=== PATIENT | female | born 1940 | race Caucasian/White ===

== ENCOUNTER 2017-03-15 13:56 | Inpatient (IN) | payer MEDICARE, OTHER ==
[~2017-03-15] VITALS: Ht 149.9 cm; Wt 54.9 kg
--- NOTE | 2017-03-15 14:00 | NUR ---
DIARRHEA X 5 DAYS ASSOCIATED WITH WEAKNESS AND EPIGASTRIC DISCOMFORT, NAD NOTED, VSS, RESP EVEN AND UNLABORED. PT PUT ON MONITOR, WAITING FOR MD CHAUDHRY.
[2017-03-15] MEDS ORDERED: FAMOTIDINE/PF INJ 20 MG/2 ML VIAL IV ONE ×2 (14:50→15:00)
[2017-03-15 14:53] LABS: BASOPHILS % (AUTO) 0.7 % (0.0-2.0); EOSINOPHILS # (AUTO) 0.1 /CMM (0.0-0.7); EOSINOPHILS % (AUTO) 1.5 % (0.0-6.0); HEMATOCRIT 39 % (33-45); HEMOGLOBIN 13.4 g/dL (11.5-14.8); LYMPHOCYTES # (AUTO) 1.8 /CMM (0.8-4.8); LYMPHOCYTES % (AUTO) 40.6 % (20.0-44.0); MEAN CORPUSCULAR HEMOGLOBIN 32 PG (26.0-33.0); MEAN CORPUSCULAR HGB CONC 35 g/dl (31.0-36.0); MEAN CORPUSCULAR VOLUME 92 fL (82-100); MONOCYTES # (AUTO) 0.6 /CMM (0.1-1.30); MONOCYTES % (AUTO) 12.5 % (2.0-12.0); NEUTROPHILS % (AUTO) 44.7 % (43.0-81.0); PLATELET COUNT (AUTO) 142 /CMM (150-450); RDW COEFFICIENT OF VARIATION 12.7 (11.5-15.0); RED BLOOD CELL COUNT(AUTO) 4.21 MIL/uL (4.0-5.2); WHITE BLOOD COUNT (AUTO) 4.5 K/uL (4.3-11.0)
[2017-03-15] MEDS ORDERED: IV NS 0.9% 1,000 ML BAG IV ONE (15:00)
[2017-03-15 15:02] LABS: CALCIUM, SERUM 8.3 mg/dL (8.5-10.1); CARBON DIOXIDE 24 mmol/L (21-32); CHLORIDE 101 mmol/L (98-107); CREATININE 0.7 mg/dL (0.6-1.3); GLUCOSE 89 mg/dL (74-106); POTASSIUM 3.5 mmol/L (3.5-5.1); SODIUM SERUM 133 mmol/L (136-145); UREA NITROGEN, BLOOD 12 mg/dL (7-18)
[2017-03-15 15:06] LABS: INR 1.09 (0.87-1.13); PROTHROMBIN TIME 11.3 SECS (9.5-12.7)
[2017-03-15 15:08] LABS: ALANINE AMINOTRANSFERASE 32 U/L (12-78); ALBUMIN 3.1 g/dL (3.4-5.0); ALKALINE PHOSPHATASE 53 U/L (46-116); ASPARTATE AMINOTRANSFERASE 28 U/L (15-37); BILIRUBIN,DIRECT 0.1 mg/dL (0.0-0.2); BILIRUBIN,TOTAL 0.5 mg/dL (0.2-1.0); LIPASE 161 U/L (73-393); TOTAL PROTEIN, SERUM 6.5 g/dL (6.4-8.2)
[2017-03-15 15:10] LABS: TROPONIN I 0.037 ng/mL (0.00-0.056)
--- NOTE | 2017-03-15 15:18 | NUR ---
urine sent to lab
[2017-03-15 15:23] LABS: APPEARANCE,URINE Clear (CLEAR); BILIRUBIN,URINE Negative (NEGATIVE); BLOOD, URINE Trace-intact Ery/uL (NEGATIVE); COLOR,URINE Yellow (YELLOW); KETONES,URINE Negative (NEGATIVE); LEUKOCYTE ESTERASE ,URINE Trace (NEGATIVE); NITRITE, URINE Negative (NEGATIVE); PROTEIN,URINE Negative (NEGATIVE); UGLUCOSE Negative (NEGATIVE); UROBILINOGEN,URINE 0.2 EU/dL (0.2)
[2017-03-15 15:30] LABS: BACTERIA,URINE None seen /HPF (None Seen); SQUAMOUS EPITHELIAL CELL,UR Few /HPF (None Seen)
[2017-03-15] MEDS ORDERED: CEFTRIAXONE 1GM BAG (ER ONLY) 1 GM/50 ML PIGGYBACK IV ONE (16:00)
--- NOTE | 2017-03-15 16:22 | NUR ---
DR NETTLES ON THE PHONE WITH Dr. Matthews
[2017-03-15] MEDS ORDERED: CEFTRIAXONE 1 G in IV D5W 50 ML IV ONE (16:30)
[2017-03-15] MEDS ORDERED: ASPIRIN 325 MG TABLET PO ONE (16:30)
[2017-03-15] MEDS ORDERED: ASPIRIN 325 MG TABLET ONE (17:09)
[2017-03-15] MEDS ORDERED: ATOR40TA PO (17:46)
[2017-03-15] MEDS ORDERED: IRBE150T28 PO (17:46)
[2017-03-15] MEDS ORDERED: ASPI-1169 PO (17:46)
[2017-03-15] MEDS ORDERED: PRED5DRO17 EACHEYE (17:46)
[2017-03-15] MEDS ORDERED: BROM5DRO3 EACHEYE (17:46)
[2017-03-15] MEDS ORDERED: GATI2.5D EACHEYE (17:46)
[2017-03-15] MEDS ORDERED: CITA10TA9 PO (17:46)
[2017-03-15] MEDS ORDERED: LORA1TAB PO (17:46)
[2017-03-15] MEDS ORDERED: UBID30CA11 PO (17:46)
[2017-03-15] MEDS ORDERED: OMEP20TA5 PO (17:46)
[2017-03-15] MEDS ORDERED: IV NS 0.9% 1,000 ML IV PRN (17:55)
[2017-03-15] MEDS ORDERED: ACETAMINOPHEN 325 MG TABLET PO PRN (18:00)
[2017-03-15] MEDS ORDERED: HYDROCODONE/APAP 5/325MG 1 EACH TABLET PO PRN (18:00)
[2017-03-15] MEDS ORDERED: Z GUARD REMEDY 2 OZ OINT TP PRN (18:00)
[2017-03-15] MEDS ORDERED: MAGNESIUM HYDROXIDE 30 ML UDC PO PRN (18:00)
[2017-03-15] MEDS ORDERED: ONDANSETRON HCL/PF 4 MG/2 ML VIAL IVP PRN (18:00)
[2017-03-15] MEDS ORDERED: ZOLPIDEM TARTRATE 5 MG TABLET PO PRN (18:00)
[2017-03-15] MEDS ORDERED: MAG HYDROX/AL HYDROX/SIMETH 30 ML UDC PO PRN (18:00)
--- NOTE | 2017-03-15 18:22 | NUR ---
called jose for report, she will call back in 10 mins
--- NOTE | 2017-03-15 19:30 | NUR ---
AGRICULTURAL RESEARCH TECHNOLOGIST OPENING NOTES: RECEIVED PT FROM ED VIA [employer]. PT IS A/OX3 AND MALIAN SPEAKING AND UNDERSTANDING ONLY. PT CAN SPEAK AND UNDERSTAND SOME ALBANIAN. DAUGHTER IN LAW AT BEDSIDE. PT ON ROOM AIR AND TOLERATING WELL. PT HAS IV ON L HAND #18G AND IS PATENT AND INTACT. PT TO BE STARTED ON FLUIDS AT NS 75ML/HR. CALL LIGHT WITHIN PT'S REACH. BED KEPT IN LOW, LOCKED POSITION, AND SIDE RAILS X 2UP. WILL CONTINUE TO MONITOR PT.
--- NOTE | 2017-03-15 19:55 | NUR ---
EQUIPMENT ASSOCIATE NOTES: BROMSITE AND GATIFLOXACIN SENT TO PHARMACY.
[2017-03-15 20:00] VITALS: BP 155/91
[2017-03-15] MEDS: AZITHROMYCIN 500 MG in IV D5W 250 ML IV SCH (20:21)
[2017-03-15] MEDS: methylPREDNISolone SOD SUCC 125 MG/2ML VIAL IV SCH (20:39)
[2017-03-15] MEDS: GATIFLOXACIN EACHEYE SCH (20:43)
[2017-03-15] MEDS: prednisoLONE ACETATE 1% SUSP 5 ML BOTTLE EACHEYE SCH (20:45)
[2017-03-15] MEDS: ENOXAPARIN SODIUM 30 MG/0.3 ML DISP.SYRIN SQ SCH (21:00)
[2017-03-15] MEDS: IPRATROPIUM NEB FS 0.5 MG/2.5 ML AMPUL.NEB NEB SCH (21:06)
[2017-03-15] MEDS: ALBUTEROL FS 2.5 MG/0.5 ML VIAL.NEB NEB SCH (21:06)
[2017-03-15] MEDS: LORAZEPAM 1 MG TABLET PO SCH (22:51)
[2017-03-16] VITALS: BP 139/85
[2017-03-16] MEDS: methylPREDNISolone SOD SUCC 125 MG/2ML VIAL IV SCH ×3 (00:23→12:30)
[2017-03-16] MEDS: IPRATROPIUM NEB FS 0.5 MG/2.5 ML AMPUL.NEB NEB SCH ×4 (02:03→19:54)
[2017-03-16] MEDS: ALBUTEROL FS 2.5 MG/0.5 ML VIAL.NEB NEB SCH ×4 (02:03→19:54)
[2017-03-16 04:00] VITALS: BP 133/93
[2017-03-16 06:51] LABS: CHOLESTEROL 111 mg/dL (<200); HDL CHOLESTEROL 36 mg/dL (40-60); LDL 61 mg/dL (0-99); TRIGLYCERIDES 58 mg/dL (30-150)
--- NOTE | 2017-03-16 06:52 | NUR ---
POUNCING MACHINE OPERATOR CLOSING NOTES: ALL NEEDS WERE ATTENDED AND ANTICIPATED FOR. PT ASLEEP IN BED AT THIS TIME. PT IS A/OX3 AND THAI SPEAKING AND UNDERSTANDING ONLY. PT CAN SPEAK AND UNDERSTAND SOME GERMAN. PT ON ROOM AIR AND TOLERATING WELL. PT HAS IV ON L HAND #18G AND IS PATENT AND INTACT. PT IS BEING INFUSED WITH NS AT 75ML/HR. PT ON TELE BOX AND READING SHOWS SB 48- SR 65 WITH BBBS THROUGHOUT MY SHIFT. CALL LIGHT WITHIN PT'S REACH. BED KEPT IN LOW, LOCKED POSITION, AND SIDE RAILS X 2UP. WILL ENDORSE TO AM NURSE FOR AKASH.
[2017-03-16 06:55] LABS: CALCIUM, SERUM 7.9 mg/dL (8.5-10.1); CARBON DIOXIDE 22 mmol/L (21-32); CHLORIDE 108 mmol/L (98-107); CREATININE 0.7 mg/dL (0.6-1.3); GLUCOSE 159 mg/dL (74-106); MAGNESIUM 1.7 mg/dL (1.8-2.4); POTASSIUM 3.5 mmol/L (3.5-5.1); SODIUM SERUM 141 mmol/L (136-145); UREA NITROGEN, BLOOD 9 mg/dL (7-18)
[2017-03-16 07:06] LABS: BASOPHILS % (AUTO) 0.1 % (0.0-2.0); EOSINOPHILS % (AUTO) 0.1 % (0.0-6.0); HEMATOCRIT 37 % (33-45); HEMOGLOBIN 12.6 g/dL (11.5-14.8); LYMPHOCYTES # (AUTO) 0.9 /CMM (0.8-4.8); LYMPHOCYTES % (AUTO) 34.9 % (20.0-44.0); MEAN CORPUSCULAR HEMOGLOBIN 32 PG (26.0-33.0); MEAN CORPUSCULAR HGB CONC 34 g/dl (31.0-36.0); MEAN CORPUSCULAR VOLUME 94 fL (82-100); MONOCYTES # (AUTO) 0.1 /CMM (0.1-1.30); MONOCYTES % (AUTO) 3.5 % (2.0-12.0); NEUTROPHILS # (AUTO) 1.5 /CMM (1.8-8.9); NEUTROPHILS % (AUTO) 61.4 % (43.0-81.0); PLATELET COUNT (AUTO) 148 /CMM (150-450); RDW COEFFICIENT OF VARIATION 12.3 (11.5-15.0); RED BLOOD CELL COUNT(AUTO) 3.96 MIL/uL (4.0-5.2); WHITE BLOOD COUNT (AUTO) 2.5 K/uL (4.3-11.0)
[2017-03-16 08:00] VITALS: BP 162/86
--- NOTE | 2017-03-16 08:00 | NUR ---
ms rn received on bed, awake,alert,oriented x3,not in any form of distress, respirations even and unlabored,no sob noted, lungs are clear,abdomen soft,positive bowel sounds, denies pain at this time, will monitor patient's condition.
--- NOTE | 2017-03-16 08:30 | NUR ---
ms rn was seen by dr.rubin marrero/ orders made and carried out.
[2017-03-16] MEDS ORDERED: UBIDECARENONE 30 MG PO SCH (09:00)
--- NOTE | 2017-03-16 09:00 | NUR ---
ms stevenson breakfast served,due meds given,tolerated well.
[2017-03-16 09:54] LABS: ABG BASE EXCESS -1.2 mmol/L; ABG OXYGEN SATURATION 94.6 % (92.0-98.5); ABG PH 7.472 (7.350-7.450); ABG PO2 71.7 mmHg (75.0-100.0); AaDO2 42.1 mmHg; MetHb 0.3 % (0.0-1.5); O2Hb 94.3 % (94.0-97.0); SITE, ABG Left Radial; VENT MODE, BG Room Air
[2017-03-16] MEDS: Magnesium 1GM/D5W 100ML PREMIX 100 ML IV SCH ×2 (10:06→12:33)
[2017-03-16] MEDS: Bromfenac Sodium (Bromsite) EACHEYE SCH (10:06)
[2017-03-16] MEDS: prednisoLONE ACETATE 1% SUSP 5 ML BOTTLE EACHEYE SCH ×3 (10:07→18:24)
[2017-03-16] MEDS: GATIFLOXACIN EACHEYE SCH ×3 (10:07→18:24)
[2017-03-16] MEDS: ASPIRIN 81 MG TAB.CHEW PO SCH (10:08)
[2017-03-16] MEDS: IRBESARTAN (150MG) 150 MG TABLET PO SCH (10:09)
[2017-03-16] MEDS: NICOTINE PATCH (7MG) 7 MG PATCH.TD24 TD SCH (10:09)
[2017-03-16] MEDS: PANTOPRAZOLE 40 MG TABLET.DR PO SCH (10:10)
[2017-03-16 10:23] LABS: LYMPHOCYTES % (MANUAL) 33 % (16-48); MONOCYTES % (MANUAL) 2 % (0-11.0); NEUTROPHILS % (MANUAL) 65 (42-76)
--- NOTE | 2017-03-16 14:00 | NUR ---
ms rn on bed,,sleeping.
[2017-03-16 16:00] VITALS: BP 135/69
[2017-03-16] MEDS ORDERED: ATORVASTATIN 40 MG TABLET PO SCH (18:00)
--- NOTE | 2017-03-16 19:00 | NUR ---
MS RN ON BED, NO CHANGE OF CONDITION.
--- NOTE | 2017-03-16 19:35 | NUR ---
RN OPENING NOTES RECEIVED REPORT FROM DAYSHIFT RNLORENA.FOUND Pt AWAKE, RESTING IN BED COMFORTABLY. NO S/S OF ACUTE DISTRESS OR SOB NOTED. GRANDSON VISITING AT BEDSIDE. Pt IS A/OX3, VERBAL, ABLE TO MAKE NEEDS KNOWN. ON TELE MONITOR. IV ACCESS ON L HAND #18G, SL. SAFETY MEASURES IN PLACE. BED LOW, LOCKED, HOB ELEVATED, SIDE RAILS UP, CALL LIGHT AND BEDSIDE TABLE WITHIN REACH. WILL CONTINUE TO MONITOR Pt THROUGHOUT THE NIGHT FOR SAFETY.
[2017-03-16 20:00] VITALS: BP 143/73
[2017-03-16 20:41] VITALS: BP 143/73
[2017-03-16] MEDS: AZITHROMYCIN 500 MG in IV D5W 250 ML IV SCH (21:16)
--- NOTE | 2017-03-16 22:30 | NUR ---
NEW IV ACCESS STARTED ON LWRIST #22G.
[2017-03-17] MEDS: AZITHROMYCIN 500 MG in IV D5W 250 ML IV SCH (00:21)
[2017-03-17] MEDS: LORAZEPAM 1 MG TABLET PO SCH (00:31)
[2017-03-17] MEDS: methylPREDNISolone SOD SUCC 40 MG/ML VIAL IV SCH ×2 (00:31→09:29)
[2017-03-17] MEDS: ENOXAPARIN SODIUM 30 MG/0.3 ML DISP.SYRIN SQ SCH (00:33)
[2017-03-17] MEDS: prednisoLONE ACETATE 1% SUSP 5 ML BOTTLE EACHEYE SCH ×3 (00:36→13:32)
[2017-03-17] MEDS: GATIFLOXACIN EACHEYE SCH ×3 (00:37→13:32)
[2017-03-17] MEDS: ALBUTEROL FS 2.5 MG/0.5 ML VIAL.NEB NEB SCH ×3 (01:14→13:56)
[2017-03-17] MEDS: IPRATROPIUM NEB FS 0.5 MG/2.5 ML AMPUL.NEB NEB SCH ×3 (01:14→13:56)
[2017-03-17 06:28] LABS: HEMATOCRIT 34 % (33-45); HEMOGLOBIN 11.8 g/dL (11.5-14.8); LYMPHOCYTES % (AUTO) 10.1 % (20.0-44.0); MEAN CORPUSCULAR HEMOGLOBIN 32 PG (26.0-33.0); MEAN CORPUSCULAR HGB CONC 35 g/dl (31.0-36.0); MEAN CORPUSCULAR VOLUME 92 fL (82-100); MONOCYTES # (AUTO) 0.3 /CMM (0.1-1.30); MONOCYTES % (AUTO) 2.9 % (2.0-12.0); NEUTROPHILS # (AUTO) 8.2 /CMM (1.8-8.9); PLATELET COUNT (AUTO) 184 /CMM (150-450); RDW COEFFICIENT OF VARIATION 13.7 (11.5-15.0); RED BLOOD CELL COUNT(AUTO) 3.69 MIL/uL (4.0-5.2); WHITE BLOOD COUNT (AUTO) 9.4 K/uL (4.3-11.0)
--- NOTE | 2017-03-17 06:45 | NUR ---
RN CLOSING NOTES RECEIVED REPORT FROM INFECTION CONTROL, SAID THAT A C.DIFF STOOL SAMPLE NEEDED TO BE COLLECTED D/T EPISODES OF DIARRHEA. Pt DENIES HAVING ANY DIARRHEA DURING NIGHT. NO SIGNIFICANT CHANGES IN Pt's CONDITION. Pt REMAINS STABLE AT THIS TIME. NO S/S OF ACUTE DISTRESS OR SOB NOTED DURING THE NIGHT. ALL NEEDS MET AND ATTENDED TO. SAFETY MEASURES IN PLACE. WILL ENDORSE TO DAYSHIFT RN FOR Pt's AKASH.
[2017-03-17 06:50] LABS: TROPONIN I 0.031 ng/mL (0.00-0.056)
[2017-03-17 07:03] LABS: ALANINE AMINOTRANSFERASE 48 U/L (12-78); ALKALINE PHOSPHATASE 47 U/L (46-116); ASPARTATE AMINOTRANSFERASE 32 U/L (15-37); BILIRUBIN,TOTAL 0.4 mg/dL (0.2-1.0); CALCIUM, SERUM 8.4 mg/dL (8.5-10.1); CARBON DIOXIDE 24 mmol/L (21-32); CHLORIDE 108 mmol/L (98-107); CREATININE 0.8 mg/dL (0.6-1.3); GLUCOSE 156 mg/dL (74-106); MAGNESIUM 2.2 mg/dL (1.8-2.4); PHOSPHORUS 2.7 mg/dL (2.5-4.9); POTASSIUM 3.9 mmol/L (3.5-5.1); SODIUM SERUM 140 mmol/L (136-145); TOTAL PROTEIN, SERUM 6.3 g/dL (6.4-8.2); UREA NITROGEN, BLOOD 13 mg/dL (7-18)
[2017-03-17 08:00] VITALS: BP 150/85
--- NOTE | 2017-03-17 08:00 | NUR ---
MS RN OPENING NOTES PATIENT IN BED ALERT ORIENTED.HOB ELEVATED. NO SOB NOTED. NO ACUTE DISTRESS NOTED. BREATHING REGULAR AND UNLABORED. SKIN IS SOFT AND WARM TO TOUCH. IV ACCES PATENT AND INTACT. NO REDNESS. NO S/SX OF INFILTRATION NOTED. SAFETY MEASURE IN PLACE. CALL LIGHT WITHIN REACH. WILL CONTINUE TO MONITOR ACCORDINGLY.
[2017-03-17] MEDS: PANTOPRAZOLE 40 MG TABLET.DR PO SCH (08:28)
[2017-03-17] MEDS: Bromfenac Sodium (Bromsite) EACHEYE SCH (09:28)
[2017-03-17] MEDS: ASPIRIN 81 MG TAB.CHEW PO SCH (09:29)
[2017-03-17 09:30] VITALS: BP 150/85
[2017-03-17] MEDS: IRBESARTAN (150MG) 150 MG TABLET PO SCH (09:30)
[2017-03-17] MEDS: NICOTINE PATCH (7MG) 7 MG PATCH.TD24 TD SCH (09:30)
--- NOTE | 2017-03-17 12:54 | NUR ---
PT MADE SEMI SOFT BROWN BM MODERATE IN AMT AND NOT WATERY.LAB DIDN'T ACCEPT THE SPECIMEN AND WAS DISCARDED BY COIN MACHINE SUPERVISOR.
[2017-03-17] MEDS ORDERED: METF500T4 PO (13:49)
[2017-03-17] MEDS ORDERED: AZIT250T13 PO (13:49)
[2017-03-17] MEDS ORDERED: ALBU18HF2 INH (13:49)
[2017-03-17] MEDS ORDERED: FLU VACC QS 2017-18(36MOS+)/PF 0.5 ML DISP.SYRIN IM ONE (14:00)
[2017-03-17] MEDS ORDERED: PNEUMOCOCCAL 23-VAL P-SAC VAC 0.5 ML VIAL SQ ONE (14:00)
--- NOTE | 2017-03-17 14:36 | NUR ---
PT REFUSED PNEUMONIA AND FLU SHOT INSPITE OF EXPLAINING ITS RISKS AND BENEFITS.
--- NOTE | 2017-03-17 15:00 | NUR ---
MS PLANNING ANALYST NOTES PATIENT DISCHARGED IN STABLE CONDITION VIA PRIVATE CAR. NO SOB NOTED. NO ACUTE DISTRESS NOTED. BREATHING REGULAR AND UNLABORED. SKIN IS SOFT AND WARM TO TOUCH.DISCHARGE INSTRUCTIONS GIVEN TO THE PATIENT INCLUDING FOLLOW UP APPOINTMENT, VERBALIZED UNDERSTANDING. VERIFIED WITH [facility] REGARDING NEW PRESCRIPTION AVAILABLE FOR DINKEY OPERATOR. PATIENT AWARE. ALL BELONGINGS ACCOUNTED FOR. ASSISTED TO THE LOBBY BY GABY AND RN.
[2017-03-17] MEDS ORDERED: AZITHROMYCIN 250 MG TABLET PO SCH (20:00)
== END 2017-03-17 14:56 | disposition home or self-care (01) | DRG 202 ==
LOC: ER 14:05 → TELE 18:00 → MED 03-17 08:24
PROVIDERS: ADMIT Internal Medicine; ATTEND Internal Medicine
DX: J20.9 Acute bronchitis, unspecified (principal); E87.1 Hypo-osmolality and hyponatremia; D69.6 Thrombocytopenia, unspecified; E86.0 Dehydration; E83.42 Hypomagnesemia; A08.4 Viral intestinal infection, unspecified; E78.5 Hyperlipidemia, unspecified; F17.210 Nicotine dependence, cigarettes, uncomplicated; I10 Essential (primary) hypertension; D72.819 Decreased white blood cell count, unspecified; Z98.49 Cataract extraction status, unspecified eye; R73.03 Prediabetes
CPT/HCPCS: 36415; 36600; 71045-TC; 80048-TC; 80053-TC; 80061-TC; 80076-TC; 81000-TC; 82746; 82803-TC; 83690-TC; 83735-TC; 84100-TC; 84484-TC; 85025-TC; 85730-TC; 93307-TC; A4606; J0456; J0696; J1650; J2920; J2930; J3475; J3490; J7030; J7060; Z7610

== ENCOUNTER 2017-03-20 12:34 | Outpatient (CLI) | payer MEDICARE, OTHER ==
[~2017-03-20 12:34] MED LIST: ALBU18HF2 INH; ASPI-1169 PO; ATOR40TA PO; AZIT250T13 PO; BROM5DRO3 EACHEYE; CITA10TA9 PO; GATI2.5D EACHEYE; IRBE150T28 PO; LORA1TAB PO; METF500T4 PO; OMEP20TA5 PO; PRED5DRO17 EACHEYE; UBID30CA11 PO
[2017-03-20 12:49] VITALS: BP 116/74
[2017-03-20 13:01] VITALS: BP 116/74
== END 2017-03-20 23:59 | disposition home or self-care (01) ==
LOC: MSC 12:34
PROVIDERS: ATTEND Internal Medicine
DX: J20.9 Acute bronchitis, unspecified (principal); R53.1 Weakness; R19.7 Diarrhea, unspecified; I10 Essential (primary) hypertension; E78.5 Hyperlipidemia, unspecified; K21.9 Gastro-esophageal reflux disease without esophagitis; F17.200 Nicotine dependence, unspecified, uncomplicated; R73.03 Prediabetes; H26.9 Unspecified cataract

== ENCOUNTER 2017-03-23 08:00 | Outpatient (CLI) | payer MEDICARE, OTHER ==
[2017-03-23] MEDS ORDERED: REGADENOSON 0.4 MG/5 ML DISP.SYRIN IVP ONE (08:30)
== END 2017-03-23 23:59 | disposition home or self-care (01) ==
LOC: NM 08:00
PROVIDERS: ATTEND Internal Medicine Interventional Cardiology
DX: R07.9 Chest pain, unspecified (principal); R06.02 Shortness of breath
CPT/HCPCS: 78452; A9502; J2785